=== PATIENT | female | born 2000 | race Caucasian/White ===

== ENCOUNTER 2019-06-25 03:30 | Inpatient (IN) ==
[2019-06-25] MEDS ORDERED: Ringers Solution, Lactated 1,000 ML ONE (04:18)
[2019-06-25] MEDS ORDERED: Naloxone 0.4 MG/ML INJ IVP PRN (04:40)
[2019-06-25] MEDS ORDERED: *HR* Nalbuphine 10 MG/ML AMPUL IVP PRN (04:40)
[2019-06-25] MEDS ORDERED: Metoclopramide 10 MG/2 ML VIAL IVP PRN (04:40)
[2019-06-25] MEDS ORDERED: Famotidine 20 MG/2 ML VIAL IVP PRN (04:40)
[2019-06-25] MEDS ORDERED: Ondansetron 4 MG/2 ML VIAL IVP PRN (04:40)
[2019-06-25] MEDS ORDERED: Lidocaine 1% 20 ML MDV ID PRN (04:40)
[2019-06-25] MEDS ORDERED: Ringers Solution, Lactated 1,000 ML IVC SCH (04:45)
[2019-06-25] MEDS ORDERED: Oxytocin 20 units/ LR 1000 mL 20 UNIT/1,000 ML BAG IVC SCH ×2 (04:45→21:59)
[2019-06-25 05:06] LABS: Basophils % 0.3 %; Eosinophils # 0.1 K/mcL (0.0-0.6); Eosinophils % 1.6 %; Hematocrit 36.4 % (35.3-44.9); Immature Granulocytes % 0.3 % (0-4); Lymphocytes # 1.9 K/mcL (0.6-4.6); Lymphocytes % 30.4 %; Mean Corpuscular Hemoglobin 29.1 pg (28.0-33.3); Mean Corpuscular Volume 88.3 fL (83.0-100.0); Mean Platelet Volume 10.6 fL (9.4-12.4); Monocytes # 0.6 K/mcL (0.0-1.3); Monocytes % 10.2 %; Neutrophils # 3.5 K/mcL (1.6-8.9); Platelet Count 163 K/mcL (140-400); Red Blood Count 4.12 M/mcL (3.82-4.97); Red Cell Distribution Width 13.5 % (11.5-14.5); Segmented Neutrophils % 57.2 %; White Blood Count 6.2 K/mcL (4.3-11.1)
[2019-06-25 05:11] LABS: Amphetamine Screen,Urine Negative ng/mL (Cutoff=1000); Barbiturate Screen,Urine Negative ng/mL (Cutoff=200); Benzodiazepines Screen,Urine Negative ng/mL (Cutoff=200); Cannabinoid Screen,Urine Negative ng/mL (Cutoff = 50); Cocaine Screen,Urine Negative ng/mL (Cutoff= 300); Opiate Screen,Urine Negative ng/mL (Cutoff=300); Phencyclidine Screen,Urine Negative ng/mL (Cutoff=25)
--- NOTE | 2019-06-25 05:15 | Event Note ---
Date of Encounter: 06/25/19 Time of Encounter: 05:12 Discussed cervical nash balloon with patient and she is agreeable to proceed. Double cervical nash balloon inserted without difficulty. 60mL sterile water instilled into uterine balloon, 40mL sterile water instilled into vaginal balloon. Patient tolerated with minimal discomfort.
--- NOTE | 2019-06-25 06:54 | Anesthesia Evaluation PreOp ---
Date of Encounter: 06/25/19 Time of Encounter: 06:52 - Past History Planned Operation: peña Cardiac History: Other (high HR) Pulmonary History: Denies Any Significant HX [employer] History: Denies Any Significant HX Other Medical History: GERD Anesthesia History: No Prior Anesthetic Complications, Past Anesthesia (peña 2014) : Yes Test: Positive Alcohol Use: none Drug use: none Medications and Allergies Metoprolol [Lopressor] 25 mg PO DAILY 06/25/19 [History] Allergy/AdvReac Type Severity Reaction Status Date / Time azithromycin Allergy Swelling Verified 06/25/19 04:26 of Lip/Tongue/Throat Erythromycin Base Allergy Swelling Verified 06/25/19 04:26 of Lip/Tongue/Throat - Meds/Allergy Pre-op Review Medications Reviewed: Yes Allergies Reviewed: Yes Beta Blockers on Current Med List: Yes If Beta Blockers taken, Date/Time (Last Dose taken): 06/14 Anesthesia Results - Labs 06/25/19 04:05 Anesthesia Exam 115/69 85 16 fht 150 Height: 5'4" Weight: 143 NPO (# of Hours): 2 Pain Scale: 5 Pain Scale Used: Numeric (1 - 10) - HEENT Pupil (Motor): Pupils equal Mallampati: II Teeth: Normal Oral Opening: Greater than 3 - [employer] LOC: Oriented [employer] Motor: Normal RUE, Normal LUE, Normal RLE, Normal LLE, Normal Face [employer] Sensory: Normal: RUE, LUE, RLE, LLE, Face - Cardiac Rhythm: Regular Murmur: None - Pulmonary Breath Sounds: bilateral Clear Respiratory Effort: Symmetrical Anesthesia Assess/Plan ASA Score: 2 Level of consciousness: Cooperative Anesthetic Plan: Epidural (risks discussed, questions answered, consented) Autologous Blood: No Monitoring Plan: Standard Monitors Recovery Plan: Other
--- NOTE | 2019-06-25 09:47 | OB Labor Progress Note ---
Date of Encounter: 06/25/19 Time of Encounter: 09:45 Labor Progress Note - Subjective Subjective: Patient uncomfortable with contractions. - Vital Signs Vital Signs: WNL - Cervix Cervix: 5/80/-2 - Heart Tones Heart Tones: FHR 120 bpm, moderate variability, +15x15 accels, no decels. - Keller Keller: 1.5-2 minutes - Interventions Interventions: SVE Double cervical nash removed - Plan Physician notified: Yes Physician notified details: Dr. Schultz notified of SVE and nash removal. Plan: Continue Pitocin induction Patient requests epidural at this time. May have it placed by CHIEF UNDERWRITER. AROM when station appropriate. Anticipate
[2019-06-25] MEDS ORDERED: Epidural Premix (fent/bupiv) 110 ML EP SCH (10:15)
[2019-06-25] MEDS ORDERED: Bupivacaine-MPF 0.25% 10 ML VIAL ONE (10:19)
[2019-06-25] MEDS ORDERED: *HR* FentaNYL (PF) 100 MCG/2 ML VIAL ONE (10:19)
[2019-06-25] MEDS ORDERED: Acetaminophen 325 MG TABLET PO ONE (13:02)
--- NOTE | 2019-06-25 13:04 | Anesthesia Procedures ---
Date of Encounter: 06/25/19 Time of Encounter: 10:22 Procedures: Anesthesia - Epidural/Spinal Patient ID/Chart reviewed: Yes Patient examined: Yes OB Eval: Gestational age: 39 OB Eval: : 2 OB Eval: Hx Para: 0 OB Eval: Dilated at (cm): 5 OB Eval: Contractions: Non-stressed pattern Consent Obtained: Yes Supplemental Oxygen: None/Room Air Site Prep: Aseptic Technique, Sterile prep and drape, 0.5% Chlorhexidine/Alcohol Patient position: upright Local Anesthetic: Lidocaine 1% Amount of Local Anesthetic used: 3 Touhy Needle Gauge: 18 Touhy Needle Depth (cm): 6 Catheter Depth at Skin (cm): 11 Test Dose (1.5% Lido + Epi): Volume given (mls): 3 Test Dose Result: Negative Loading Dose: 0.25% Marcaine (mls): 5 Loading Dose: Fentanyl (mcg): 100 Loading Dose Administered: Thru Catheter Infusion Med: 0.125% Bupivacaine w/ 2 mcg/ml Fentanyl Infusion Rate (mls/hr): 13 (4ml demand bolus q 20 mins. limit of 2 per hour) Catheter Secured in Place: Tegaderm, Tape Interspace Used: L3-L4 Loss of Resistance (KARIS): Yes Blood: No CSF: No Paresthesia: No Procedure: dural puncture technique with 25 guage cher , no meds given in subarachnoid space, Vitals + FHT's: Vital Signs Time 1022 1037 1040 1045 1050 1055 BP 108/75 120/66 108/60 103/62 102/61 104/61 Pulse 90 93 76 80 68 72 FHTs 120 120 120 120 120 120
--- NOTE | 2019-06-25 13:32 | OB/GYN History & Physical ---
Date of Encounter: 06/25/19 Time of Encounter: 13:30 Assessment and Plan (1) 39 weeks gestation of Current visit: Yes Status: Acute 19yo at 39+wks GA who presents for scheduled IOL at term, elective 1. Scheduled eIOL - vertex presentation - GBS negative, esther ~7# - uncomplicated , UTD OB care - rubella immune, varicella immune - consultation with anesthesia for EPIDURAL - OK to have when patient desires - nash cook/pitocin induction - continue pitocin with AROM once nash is out Dispo: Admission to labor and delivery for scheduled eIOL at 0330 this AM. GBS negative, VTX presentation. MD RG History of Present Illness Chief complaint: 19yo here for elective IOL HPI: Ms. Ponce is a 19 year old female at 39+ weeks GA who presents for scheduled IOL. Denies n/v/d. Uncomplicated second . UTD OB care with Dr. Schultz. Denies VB/LOF/contraction(s). Scheduled for IOL today, elective. GBS negative. Vertex, ~7#. Past Med Surg Social Fam HX - Past Medical History Medical history: other Additional medical history: tachycardia Psychiatric history: anxiety - Past Surgical History Surgical History: no surgical history - Social History Smoking Status: Former smoker Smokeless Tobacco Status: No Alcohol use: none Drug use: none - Family History Mother Family Member Ethnicity: Non- Living Status: Still Living Hx Family Cardiac Disorders: Yes (heart murmur, HTN) Hx Family Respiratory Disorders: No Hx Family Cancer: No Hx Family GI Disorders: No Hx Family Genitourinary Disorders: No Hx Family Endocrine Disorder: No Hx Family Musculoskeletal Disorders: No Hx Family Neuromuscular Disorders: No Hx Family Neurologic Disorders: No Hx Family HEENT Disorders: No Hx Family Autoimmune Disorders: No Hx Family Reproductive Disorders: No Hx Family Psychosocial Disorders: No Obstetrical History - Pregnancies : 2 Para: 1 Term: 1 : 0 Ab's: 0 Livin Medications and Allergies Metoprolol [Lopressor] 25 mg PO DAILY 06/25/19 [History] Allergy/AdvReac Type Severity Reaction Status Date / Time azithromycin Allergy Swelling Verified 06/25/19 04:26 of Lip/Tongue/Throat Erythromycin Base Allergy Swelling Verified 06/25/19 04:26 of Lip/Tongue/Throat Exam - Constitutional Constitutional: well developed, well nourished, no acute distress, average body habitus - HEENT HEENT: Normocephaly, Mucus Membranes Moist - Neck Neck exam: full ROM - Lungs Respiratory exam: CTAB - Abdomen Abdomen: Present: bowel sounds normal - Extremities Extremities exam: full ROM - Vagina Vagina: Present: normal moisture - Cervix Dilation: 2 Effacement: 60 Station: -2 - Uterus Uterus exam: Present: normal size, normal contour - Anus/Rectum Anus/Rectum: Present: normal perianal skin, heme negative Results Result Diagrams: 06/25/19 04:05 All other labs normal.
--- NOTE | 2019-06-25 13:35 | Event Note ---
Date of Encounter: 06/25/19 Time of Encounter: 13:34 Called to bedside to assess for AROM. head well applied. AROM using amniohook performed. CLEAR FLUID. SVE: /-1. Patient comfortable with epidural. MD RG
--- NOTE | 2019-06-25 19:24 | OB/GYN Procedure Note ---
Delivery - Delivery Date: 06/25/19 Provider: Jessica Schultz Intrapartum events: none Delivery induction: AROM, oxytocin, nash Delivery augmentation: rupture of membranes, pitocin Delivery monitor: external FHT, external uterine, internal uterine Anesthesia: epidural Quantitated Blood Loss: 200 - Infant (s) Infant A Delivery Date: 06/25/19 Infant Delivery Time: 19:00 Presentation: vertex Position: OA Route of delivery: Gender: Male Viability: Viable Pounds: 7 Ounces: 2 at 1 minute: 8 at 5 mins: 9 Shoulder Dystocia: not encountered Specimens collected: cord blood Placenta: spontaneous Cord: nuchal cord - Repair Episiotomy: none Laceration Description: Periurethral - Complications Delivery complications: none Delivery comments: Called to bedside to evaluate, found to be C/C/+2. With more than adequate maternal effort, patient delivered infant over intact perineum. Direct OA position, nuchal x1. Delivered through, loose nuchal. was vigorous and crying. 60 second cord delay performed. Cord was clamped and cut, cord blood collected. Upon inspection of the perineum, no laceration(s) were appreciated that required repair. Small bilateral periurethrals were visualized. Placenta spontaneously delivered with gentle/minimal traction. COmpleted intact. IV pitocin started after delivery. Fundal massage performed to ensure adequate uterine contraction. Hemostasis appreciated. Counts were correct x3. I was present for the entirety of the procedure. MD RG - Disposition Mom disposition: stable in LDR
[2019-06-25] MEDS ORDERED: Rho Immune Globulin 1,500 UNIT SYRINGE IM PRN (21:59)
[2019-06-25] MEDS ORDERED: Benzocaine/Menthol 56 GM AEROSOL SPRAY TP PRN (21:59)
[2019-06-25] MEDS ORDERED: Oxytocin 20 units/ LR 1000 mL 20 UNIT/1,000 ML BAG IVC ONE (21:59)
[2019-06-25] MEDS ORDERED: Measles/Mumps/Rubella Vacc 0.5 ML VIAL SQ PRN (21:59)
[2019-06-25] MEDS ORDERED: Acetaminophen 325 MG TABLET PO PRN (21:59)
[2019-06-25] MEDS ORDERED: Sennosides 8.6 MG TABLET PO PRN (21:59)
[2019-06-25] MEDS ORDERED: Lanolin 28 GM TUBE TP PRN (21:59)
[2019-06-26] MEDS: Ibuprofen 600 MG TABLET PO PRN ×2 (04:18→15:08)
[2019-06-26 05:44] LABS: Basophils % 0.2 %; Eosinophils # 0.1 K/mcL (0.0-0.6); Eosinophils % 1.3 %; Hematocrit 35.5 % (35.3-44.9); Hemoglobin 11.5 g/dL (11.5-15.4); Immature Granulocytes % 0.3 % (0-4); Lymphocytes # 1.8 K/mcL (0.6-4.6); Lymphocytes % 20.4 %; Mean Corpuscular HGB Conc 32.4 g/dL (31.6-35.5); Mean Corpuscular Hemoglobin 29.2 pg (28.0-33.3); Mean Corpuscular Volume 90.1 fL (83.0-100.0); Mean Platelet Volume 10.4 fL (9.4-12.4); Monocytes # 0.9 K/mcL (0.0-1.3); Monocytes % 9.7 %; Neutrophils # 6.2 K/mcL (1.6-8.9); Platelet Count 189 K/mcL (140-400); Red Blood Count 3.94 M/mcL (3.82-4.97); Red Cell Distribution Width 13.6 % (11.5-14.5); Segmented Neutrophils % 68.1 %
[2019-06-26] MEDS ORDERED: Prenatal Vit/FA 1 EACH TABLET PO SCH (09:00)
--- NOTE | 2019-06-26 10:30 | Discharge Summary ---
Date of Encounter: 06/26/19 Time of Encounter: 10:28 - Discharge Diagnosis (1) Vaginal delivery Priority: Primary Status: Acute Comments: S/P Vaginal Delivery Day 1. Pain is well controlled Lochia is light and without clots Tolerating regular diet, passing flatus Voiding without difficulty Breast feeding Discharge home today POC per consult with Dr Antoine - Discharge Medications Prescriptions: New Breast Pump [BREAST PUMP] 1 each .ROUTE AD #1 each Docusate [Colace] 100 mg PO BID #30 capsule Benzocaine/Menthol Hammond [Dermoplast Hammond] 1 appl TP QID PRN aerosol PRN Reason: See Comments Lanolin 1 appl TP QID PRN tube PRN Reason: Ibuprofen [Motrin] 600 mg PO Q6HR PRN #30 tab PRN Reason: Cramping Acetaminophen [Tylenol] 650 mg PO Q6HR PRN tablet PRN Reason: Mild Pain Discontinued Metoprolol [Lopressor] 25 mg PO DAILY Home Medications: Acetaminophen [Tylenol] 650 mg PO Q6HR PRN tablet 06/26/19 [Rx] Benzocaine/Menthol Hammond [Dermoplast Hammond] 1 appl TP QID PRN aerosol 06/26/19 [Rx] Breast Pump [BREAST PUMP] 1 each .ROUTE AD #1 each 06/26/19 [Rx] Docusate [Colace] 100 mg PO BID #30 capsule 06/26/19 [Rx] Ibuprofen [Motrin] 600 mg PO Q6HR PRN #30 tab 06/26/19 [Rx] Lanolin 1 appl TP QID PRN tube 06/26/19 [Rx] Allergies/Adverse Reactions: Allergy/AdvReac Type Severity Reaction Status Date / Time azithromycin Allergy Swelling Verified 06/25/19 04:26 of Lip/Tongue/Throat Erythromycin Base Allergy Swelling Verified 06/25/19 04:26 of Lip/Tongue/Throat Data Procedures and tests throughout hospitalization: Laboratory Tests 06/25/19 06/25/19 06/26/19 04:05 04:49 05:23 WBC 6.2 9.0 RBC 4.12 3.94 Hgb 12.0 11.5 Hct 36.4 35.5 MCV 88.3 90.1 MCH 29.1 29.2 MCHC 33.0 32.4 RDW 13.5 13.6 Plt Count 163 189 MPV 10.6 10.4 Immature Gran % 0.3 0.3 Seg Neutrophils % 57.2 68.1 Lymphocytes % 30.4 20.4 Monocytes % 10.2 9.7 Eosinophils % 1.6 1.3 Basophils % 0.3 0.2 Neutrophils # 3.5 6.2 Lymphocytes # 1.9 1.8 Monocytes # 0.6 0.9 Eosinophils # 0.1 0.1 Basophils # 0.0 0.0 Urine Opiates Screen Negative Ur Buprenorphine Scrn Negative Ur Barbiturates Screen Negative Ur Phencyclidine Scrn Negative Ur Amphetamines Screen Negative U Benzodiazepines Scrn Negative Urine Cocaine Screen Negative U Marijuana (THC) Screen Negative Ur Drug Screen Interp See Below Labs on day of discharge: Labs from last 24 hours 06/26/19 05:23 WBC 9.0 RBC 3.94 Hgb 11.5 Hct 35.5 MCV 90.1 MCH 29.2 MCHC 32.4 RDW 13.6 Plt Count 189 MPV 10.4 Immature Gran % 0.3 Seg Neutrophils % 68.1 Lymphocytes % 20.4 Monocytes % 9.7 Eosinophils % 1.3 Basophils % 0.2 Neutrophils # 6.2 Lymphocytes # 1.8 Monocytes # 0.9 Eosinophils # 0.1 Basophils # 0.0 Date of admission: 06/25/19 03:33 Primary care physician: Dior Christie MD Consults: 06/25/19 21:59 Consult to [facility] Spinner [CONS] Routine Comment: Vaginal delivery, consult needed Discharging clinician: Jessica Crump Anticipated date of discharge: 06/26/19 - Patient Status Disposition: Home, Self-Care Condition: Good Functional capacity at discharge: independent ambulation Overall status at discharge: patient is progressing back to baseline - Discharge Instructions Follow Up With: Dior Christie MD [Primary Care Provider] - Jessica Schultz MD [Partnered Physician] - - Diet and Activity Activity: increase activity as tolerated Diet: regular diet Hospital Course Reason for admission: induction of labor, IUP at term Delivery: Episiotomy: none Laceration: other Other procedures: none complications: none Discharge diagnosis: IUP at term delivered baby: male Time Attestation: Total time spent providing and/or coordinating discharge services: Time Spent: Less than 30 minutes Exam - Constitutional Vitals: Temp Pulse Resp BP Pulse Ox 97.6 F 77 14 102/70 100 06/26/19 07:58 06/26/19 07:58 06/26/19 07:58 06/26/19 07:58 06/26/19 07:58 General appearance IM: cooperative, A&O X 3, pleasant - Respiratory Respiratory exam: Present: CTAB - Cardiovascular Cardiovascular exam IM: Present: RRR, +S1, +S2 - GI/Abdominal GI/Abdominal exam IM: normal bowel sounds, soft - Rectal Rectal exam: deferred - Uterine Tone: Firm Uterus Position: 1 Finger Below Umbilicus, Midline - Extremities Exam Extremities exam IM: Present: normal capillary refill, normal inspection, radial pulses palpable and symmetrical - Neurological Exam Neurological exam: alert, oriented X3
[2019-06-26 17:05] VITALS: BP 107/66
== END 2019-06-26 21:05 | disposition home or self-care (01) | DRG 560 ==
LOC: 1NENULAB 03:33 → 1NENUOBS 21:41
PROVIDERS: ADMIT Student in an Organized Health Care Education/Training Program; ATTEND Student in an Organized Health Care Education/Training Program

== ENCOUNTER 2022-02-19 08:00 | Inpatient (IN) ==
[2022-02-19] MEDS ORDERED: Famotidine 20 MG/2 ML VIAL IVP PRN (09:09)
[2022-02-19] MEDS ORDERED: Metoclopramide 10 MG/2 ML VIAL IVP PRN (09:09)
[2022-02-19] MEDS ORDERED: *HR* Nalbuphine 10 MG/ML AMPUL IV PRN (09:09)
[2022-02-19] MEDS ORDERED: Naloxone 0.4 MG/ML INJ IVP PRN (09:09)
[2022-02-19] MEDS ORDERED: Oxytocin 30 UNIT/503 ML BAG IVC SCH (09:15)
[2022-02-19 09:34] LABS: Basophils % 0.4 %; Eosinophils # 0.2 K/mcL (0.0-0.6); Eosinophils % 2.4 %; Hematocrit 32.5 % (35.3-44.9); Hemoglobin 10.1 g/dL (11.5-15.4); Immature Granulocytes % 0.4 % (0-4); Lymphocytes # 1.5 K/mcL (0.6-4.6); Lymphocytes % 21.2 %; Mean Corpuscular HGB Conc 31.1 g/dL (31.6-35.5); Mean Corpuscular Hemoglobin 25.2 pg (28.0-33.3); Mean Platelet Volume 11.4 fL (9.4-12.4); Monocytes # 0.6 K/mcL (0.0-1.3); Monocytes % 8.9 %; Neutrophils # 4.7 K/mcL (1.6-8.9); Platelet Count 156 K/mcL (140-400); Red Blood Count 4.01 M/mcL (3.82-4.97); Red Cell Distribution Width 15.2 % (11.5-14.5); Segmented Neutrophils % 66.7 %; White Blood Count 7.1 K/mcL (4.3-11.1)
[2022-02-19] MEDS: Ringers Solution, Lactated 1,000 ML IVC SCH ×2 (09:38→17:21)
[2022-02-19 09:44] LABS: Amphetamine Screen,Urine Negative ng/mL (Cutoff=1000); Barbiturate Screen,Urine Negative ng/mL (Cutoff=200); Benzodiazepines Screen,Urine Negative ng/mL (Cutoff=200); Cannabinoid Screen,Urine Negative ng/mL (Cutoff = 50); Cocaine Screen,Urine Negative ng/mL (Cutoff= 300); Opiate Screen,Urine Negative ng/mL (Cutoff=300); Phencyclidine Screen,Urine Negative ng/mL (Cutoff=25)
[2022-02-19 10:07] LABS: Influenza A PCR Negative (Negative); Influenza B PCR Negative (Negative); Resp. Syncytial Virus PCR Negative (Negative)
[2022-02-19] MEDS ORDERED: EPHEDrine 50 MG/ML VIAL IVP PRN (10:07)
[2022-02-19 10:17] LABS: SARS-CoV-2 by PCR (In House) Negative (Negative)
[2022-02-19] MEDS: Epidural Premix (fent/bupiv) 110 ML EP SCH ×2 (17:22→17:28)
[2022-02-19] MEDS ORDERED: Famotidine 20 MG/2 ML VIAL IVP ONE (17:34)
[2022-02-19] MEDS ORDERED: Ondansetron 4 MG/2 ML VIAL ONE (17:39)
[2022-02-19] MEDS ORDERED: Methylergonovine 0.2 MG/ML AMPUL IM STA (20:56)
[2022-02-19] MEDS ORDERED: Measles/Mumps/Rubella Vacc 0.5 ML VIAL SQ PRN (23:29)
[2022-02-19] MEDS ORDERED: Ondansetron ODT 4 MG TAB.RAPDIS SL PRN (23:29)
[2022-02-19] MEDS ORDERED: Benzocaine/Menthol 56 GM AEROSOL SPRAY TP PRN (23:29)
[2022-02-19] MEDS ORDERED: OXYTOCIN/RINGERS LACTATE 10 UNIT/166.6 ML BAG IVC ONE (23:29)
[2022-02-19] MEDS ORDERED: Rho Immune Globulin 1,500 UNIT SYRINGE IM PRN (23:29)
[2022-02-19] MEDS ORDERED: Lanolin 7 G OINT...G. TP PRN (23:29)
[2022-02-20] MEDS: Ibuprofen 600 MG TABLET PO SCH ×4 (00:15→19:04)
[2022-02-20] MEDS: Acetaminophen 325 MG TABLET PO SCH ×4 (00:16→19:04)
[2022-02-20 05:48] LABS: Basophils % 0.3 %; Eosinophils % 0.4 %; Hematocrit 35.1 % (35.3-44.9); Immature Granulocytes % 0.4 % (0-4); Lymphocytes # 1.7 K/mcL (0.6-4.6); Lymphocytes % 17.6 %; Mean Corpuscular HGB Conc 31.3 g/dL (31.6-35.5); Mean Platelet Volume 11.2 fL (9.4-12.4); Monocytes # 0.8 K/mcL (0.0-1.3); Monocytes % 8.5 %; Neutrophils # 6.8 K/mcL (1.6-8.9); Platelet Count 180 K/mcL (140-400); Red Blood Count 4.23 M/mcL (3.82-4.97); Red Cell Distribution Width 15.1 % (11.5-14.5); Segmented Neutrophils % 72.8 %; White Blood Count 9.4 K/mcL (4.3-11.1)
[2022-02-20] MEDS ORDERED: NON-FORMULARY MEDICATION 1 EACH EACH (Prenatal Vitamin Tablet 1 TAB) PO SCH (09:00)
[2022-02-20] MEDS ORDERED: Prenatal Vit/FA 1 EACH TABLET PO SCH (09:00)
[2022-02-20] MEDS ORDERED: Metoprolol XL (24 HR) Succ 25 MG TAB.ER.24H PO SCH (09:45)
[2022-02-20] MEDS ORDERED: *HR* OxyCODONE Immed Rel 5 MG TABLET PO PRN (12:29)
[2022-02-20] MEDS ORDERED: Ketorolac 30 MG/ML VIAL IVP ONE (12:38)
[2022-02-20] MEDS ORDERED: Ringers Solution, Lactated 1,000 ML IVC ONE ×2 (12:39→17:45)
[2022-02-20] MEDS ORDERED: Ringers Solution, Lactated 1,000 ML ONE (12:41)
[2022-02-20] MEDS ORDERED: Ringer's Solution, Lactated 250 ML IV.SOLN IVC ONE (14:00)
[2022-02-20 21:19] VITALS: BP 122/80; PULSE 86; TEMP 98.1; O2SAT 100
[2022-02-21] MEDS ORDERED: FERROUS SULFATE 325 MG PO SCH (09:00)
== END 2022-02-20 21:06 | disposition home or self-care (01) | DRG 560 ==
LOC: 1NENULAB 08:01 → 1NENUOBS 23:36
PROVIDERS: ADMIT Student in an Organized Health Care Education/Training Program; ATTEND Student in an Organized Health Care Education/Training Program